=== PATIENT | male | born 1960 | race Caucasian/White ===

== ENCOUNTER 2021-09-29 12:01 | Emergency (ER) | payer OTHER ==
[2021-09-29] MEDS ORDERED: NAPROXEN500 MG PO (14:09)
[2021-09-29] MEDS ORDERED: BACLOFEN 10MG T10 MG PO (14:09)
== END 2021-09-29 14:55 | disposition home or self-care (01) ==
LOC: FER 12:01
DX: S06.9X1A Unspecified intracranial injury with loss of consciousness of 30 minutes or less, initial encounter (principal); S20.211A Contusion of right front wall of thorax, initial encounter; R22.0 Localized swelling, mass and lump, head; R10.11 Right upper quadrant pain; M54.9 Dorsalgia, unspecified; E11.9 Type 2 diabetes mellitus without complications; I10 Essential (primary) hypertension; W11.XXXA Fall on and from ladder, initial encounter
CPT/HCPCS: 70450; 71101; 72125; 72128; 94010; 96372; J1100; J1885